=== PATIENT | male | born 1950 | race Caucasian/White ===

== ENCOUNTER 2017-09-03 09:33 | Emergency (ER) | payer MEDICARE ==
[~2017-09-03] VITALS: Ht 180.3 cm; Wt 87.0 kg
[~2017-09-03 09:33] MED LIST: ATIVAN; LIBRIUM; PAXIL
[2017-09-03 09:34] VITALS: Ht 180.3 cm; Wt 87.0 kg
[2017-09-03] MEDS ORDERED: IBUPROFEN 600 MG TAB PO ONE (11:00)
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
== END 2017-09-03 14:16 | disposition left against medical advice (07) ==
LOC: FTE 09:33
DX: M79.605 Pain in left leg (principal)
CPT/HCPCS: 99282